=== PATIENT | male | born 1945 | race African-American/Black ===

== ENCOUNTER 2018-06-28 17:50 | Inpatient (IN) ==
[2018-06-28] MEDS ORDERED: CEFEPIME 2,000 MG in SODIUM CHLORIDE 0.9% 100 ML IV STA (18:20)
[2018-06-28] MEDS ORDERED: VANCOMYCIN INJ 1,000 MG in SODIUM CHLORIDE 0.9% 250 ML IV STA (18:21)
[2018-06-28 18:39] LABS: Basophils % 0.7 % (0.0-0.8); Eosinophils # 0.1 10*3/uL (0.0-0.87); Eosinophils % 1.5 % (0.00-10.9); Hematocrit 36.9 VOL% (42.0-52.0); Hemoglobin 11.7 GM/DL (14.0-18.0); Immature Granulocytes % 0.3 %; Immature Granulocytes Absolute 0.02 #; Lymphocytes % 17.3 % (21.2-54.2); Mean Corpuscular HGB Conc 31.7 GM/DL (32-36); Mean Corpuscular Hemoglobin 30 PG (27-34); Mean Corpuscular Volume 95.8 FL (87-102); Mean Platelet Volume 9.3 FL (9.6-12.0); Monocytes # 0.6 10*3/uL (0.11-0.8); Neutrophils # 4.1 10*3/uL (1.4-7.4); Neutrophils % 70.2 % (38.7-73.9); Platelet Count 167 T/CUMM (130-400); Red Blood Count 3.85 MC/CUMM (3.8-5.5); Red Cell Distribution Width 13.8 % (9.3-17.3); White Blood Count 5.9 T/CUMM (4-12)
[2018-06-28] MEDS ORDERED: CEFEPIME 1,000 MG VIAL ONE (18:55)
[2018-06-28 19:10] LABS: Albumin 3.2 G/DL (3.4-5.0); Bilirubin,Total 0.8 MG/DL (0.2-1.0); Calcium 8.7 MG/DL (8.5-10.1); Osmolality,Calculated 285.1 MOS/KG (273-304); Potassium 4.2 MMOL/L (3.5-5.1); Total Protein 8.1 G/DL (6.4-8.3)
[2018-06-28] MEDS ORDERED: diphenhydrAMINE 50 MG/1 ML VIAL IV STA (19:12)
[2018-06-28 19:25] LABS: Lactic Acid 1.1 MMOL/L (0.4-2.0)
[2018-06-28] MEDS ORDERED: GLUCAGON 1 MG VIAL IM PRN (19:46)
[2018-06-28] MEDS ORDERED: DEXTROSE 50% 25 GM/50 ML VIAL IV PRN (19:46)
[2018-06-28] MEDS ORDERED: ACETAMINOPHEN 325 MG TABLET PO PRN (19:46)
[2018-06-28] MEDS ORDERED: BISACODYL 5 MG TABLET PO PRN (19:46)
[2018-06-28] MEDS ORDERED: DOCUSATE SODIUM 100 MG CAPSULE PO PRN (19:46)
[2018-06-28] MEDS ORDERED: ONDANSETRON 4 MG/2 ML VIAL IV PRN (19:46)
[2018-06-28] MEDS ORDERED: traMADol 50 MG TABLET PO PRN (19:51)
[2018-06-28 20:34] LABS: Apearance,Urine CLEAR (Clear); Bacteria,Urine Occasional /HPF (Few); Bilirubin,Urine Negative (Negative); Blood, Urine Small mg/dL (Negative); Glucose,Urine (UA) 150 mg/dL (Negative); Ketones,Urine Negative (Negative); Mucus,Urine Occasional /LPF (Occasional); Nitrite,Urine Negative (Negative); Protein,Urine 30 MG/DL; RBC,Urine <1 /HPF (0-4); Squamous Epithelial Cell,Urine Occasional /HPF (0-10); Urine Color Straw (Yellow); Urine Specific Gravity 1.008 (1.001-1.035); WBC,Urine <1 /HPF (0-6)
[2018-06-28 21:11] LABS: Sedimentation Rate-Westergren 99 MM/HR (0-20)
[2018-06-28] MEDS: SODIUM CHLORIDE 0.9% 1,000 ML IV SCH (22:17)
[2018-06-28] MEDS: ATORVASTATIN 80 MG TABLET PO SCH (22:22)
[2018-06-28] MEDS: ENOXAPARIN 40 MG/0.4 ML SYRINGE SUBCUT SCH (22:22)
[2018-06-28] MEDS: GABAPENTIN 100 MG CAPSULE PO SCH (22:22)
[2018-06-28] MEDS: AMITRIPTYLINE 10 MG TABLET PO SCH (22:22)
[2018-06-28] MEDS: CITALOPRAM 20 MG TABLET PO SCH (22:22)
[2018-06-28] MEDS: PIPERACILLIN/TAZOBACTAM 3,375 MG in SODIUM CHLORIDE 0.9% 100 ML IV SCH (22:23)
[2018-06-28] MEDS: INSULIN LISPRO 100 UNIT/ML SUBCUT SCH (23:57)
[2018-06-29] MEDS: PIPERACILLIN/TAZOBACTAM 3,375 MG in SODIUM CHLORIDE 0.9% 100 ML IV SCH ×3 (05:05→23:25)
[2018-06-29] MEDS: SODIUM CHLORIDE 0.9% 1,000 ML IV SCH ×3 (05:35→21:07)
[2018-06-29] MEDS: INSULIN LISPRO 100 UNIT/ML SUBCUT SCH ×3 (06:14→18:43)
[2018-06-29 06:17] LABS: Basophils % 0.6 % (0.0-0.8); Eosinophils # 0.1 10*3/uL (0.0-0.87); Eosinophils % 2.7 % (0.00-10.9); Hematocrit 31.7 VOL% (42.0-52.0); Hemoglobin 10.4 GM/DL (14.0-18.0); Immature Granulocytes % 0.2 %; Immature Granulocytes Absolute 0.01 #; Lymphocytes # 1.2 10*3/uL (1.4-4.0); Lymphocytes % 25.7 % (21.2-54.2); Mean Corpuscular HGB Conc 32.8 GM/DL (32-36); Mean Corpuscular Hemoglobin 29 PG (27-34); Mean Corpuscular Volume 88.8 FL (87-102); Mean Platelet Volume 9.5 FL (9.6-12.0); Monocytes # 0.5 10*3/uL (0.11-0.8); Monocytes % 9.5 % (1.7-12.7); Neutrophils % 61.3 % (38.7-73.9); Platelet Count 210 T/CUMM (130-400); Red Blood Count 3.57 MC/CUMM (3.8-5.5); White Blood Count 4.8 T/CUMM (4-12)
[2018-06-29 06:39] LABS: Albumin 2.5 G/DL (3.4-5.0); Bilirubin,Total 0.8 MG/DL (0.2-1.0); Calcium 8.1 MG/DL (8.5-10.1); Osmolality,Calculated 290.7 MOS/KG (273-304); Potassium 3.4 MMOL/L (3.5-5.1); Total Protein 6.7 G/DL (6.4-8.3)
[2018-06-29] MEDS: LISINOPRIL 20 MG TABLET PO SCH (07:00)
[2018-06-29] MEDS: METOPROLOL SUCCINATE XL 50 MG TABLET PO SCH (07:00)
[2018-06-29] MEDS ORDERED: MAGNESIUM SULF RIDER 2 GM in PREMIX 1 EACH IV ONE (07:13)
[2018-06-29] MEDS ORDERED: POTASSIUM CHLORIDE 20 MEQ TABLET PO ONE ×2 (07:14→12:00)
[2018-06-29] MEDS ORDERED: BUPIVACAINE 0.5% 50 ML VIAL ONE (07:49)
[2018-06-29] MEDS ORDERED: LIDOCAINE 1% 20 ML VIAL ONE (07:50)
[2018-06-29] MEDS ORDERED: PROPOFOL 200 MG/20 ML VIAL IV ONE (08:51)
[2018-06-29] MEDS ORDERED: KETAMINE 500 MG/10 ML VIAL ONE (08:51)
[2018-06-29] MEDS ORDERED: SODIUM CHLORIDE 0.9% 250 ML IV ONE (08:51)
[2018-06-29] MEDS: INSULIN GLARGINE 100 UNIT/ML SUBCUT SCH (09:00)
[2018-06-29] MEDS: PANTOPRAZOLE 40 MG TABLET PO SCH (11:16)
[2018-06-29] MEDS: GABAPENTIN 100 MG CAPSULE PO SCH ×2 (11:16→21:06)
[2018-06-29] MEDS: VANCOMYCIN INJ 1,250 MG in SODIUM CHLORIDE 0.9% 250 ML IV SCH ×2 (11:16→21:07)
[2018-06-29] MEDS: ENOXAPARIN 40 MG/0.4 ML SYRINGE SUBCUT SCH (21:06)
[2018-06-29] MEDS: CITALOPRAM 20 MG TABLET PO SCH (21:06)
[2018-06-29] MEDS: ATORVASTATIN 80 MG TABLET PO SCH (21:06)
[2018-06-29] MEDS: AMITRIPTYLINE 10 MG TABLET PO SCH (21:06)
[2018-06-30] MEDS: INSULIN LISPRO 100 UNIT/ML SUBCUT SCH ×4 (03:33→17:04)
[2018-06-30] MEDS: SODIUM CHLORIDE 0.9% 1,000 ML IV SCH ×3 (06:10→22:16)
[2018-06-30] MEDS: PIPERACILLIN/TAZOBACTAM 3,375 MG in SODIUM CHLORIDE 0.9% 100 ML IV SCH ×3 (06:10→22:16)
[2018-06-30] MEDS: LISINOPRIL 20 MG TABLET PO SCH (06:37)
[2018-06-30] MEDS: METOPROLOL SUCCINATE XL 50 MG TABLET PO SCH (06:38)
[2018-06-30 08:32] LABS: Calcium 8.4 MG/DL (8.5-10.1); Osmolality,Calculated 278.7 MOS/KG (273-304); Potassium 4.2 MMOL/L (3.5-5.1)
[2018-06-30] MEDS: INSULIN GLARGINE 100 UNIT/ML SUBCUT SCH (08:35)
[2018-06-30] MEDS: PANTOPRAZOLE 40 MG TABLET PO SCH (08:35)
[2018-06-30] MEDS: GABAPENTIN 100 MG CAPSULE PO SCH ×2 (08:35→20:19)
[2018-06-30] MEDS: VANCOMYCIN INJ 1,250 MG in SODIUM CHLORIDE 0.9% 250 ML IV SCH ×2 (08:35→21:13)
[2018-06-30] MEDS: ENOXAPARIN 40 MG/0.4 ML SYRINGE SUBCUT SCH (20:19)
[2018-06-30] MEDS: ATORVASTATIN 80 MG TABLET PO SCH (20:19)
[2018-06-30] MEDS: CITALOPRAM 20 MG TABLET PO SCH (20:19)
[2018-06-30] MEDS: AMITRIPTYLINE 10 MG TABLET PO SCH (20:19)
[2018-07-01] MEDS: INSULIN LISPRO 100 UNIT/ML SUBCUT SCH ×4 (00:38→17:34)
[2018-07-01] MEDS: PIPERACILLIN/TAZOBACTAM 3,375 MG in SODIUM CHLORIDE 0.9% 100 ML IV SCH (04:00)
[2018-07-01 05:32] LABS: Basophils % 0.8 % (0.0-0.8); Eosinophils # 0.2 10*3/uL (0.0-0.87); Eosinophils % 3.6 % (0.00-10.9); Hematocrit 31.1 VOL% (42.0-52.0); Hemoglobin 10.2 GM/DL (14.0-18.0); Immature Granulocytes % 0.2 %; Immature Granulocytes Absolute 0.01 #; Lymphocytes # 1.3 10*3/uL (1.4-4.0); Lymphocytes % 27.2 % (21.2-54.2); Mean Corpuscular HGB Conc 32.8 GM/DL (32-36); Mean Corpuscular Hemoglobin 29 PG (27-34); Mean Corpuscular Volume 89.6 FL (87-102); Mean Platelet Volume 9.6 FL (9.6-12.0); Monocytes # 0.4 10*3/uL (0.11-0.8); Monocytes % 9.3 % (1.7-12.7); Neutrophils # 2.8 10*3/uL (1.4-7.4); Neutrophils % 58.9 % (38.7-73.9); Platelet Count 200 T/CUMM (130-400); Red Blood Count 3.47 MC/CUMM (3.8-5.5); White Blood Count 4.7 T/CUMM (4-12)
[2018-07-01 05:50] LABS: Calcium 8.2 MG/DL (8.5-10.1); Osmolality,Calculated 282.3 MOS/KG (273-304)
[2018-07-01] MEDS: LISINOPRIL 20 MG TABLET PO SCH (06:14)
[2018-07-01] MEDS: METOPROLOL SUCCINATE XL 50 MG TABLET PO SCH (06:15)
[2018-07-01] MEDS: SODIUM CHLORIDE 0.9% 1,000 ML IV SCH ×3 (06:15→22:28)
[2018-07-01] MEDS: GABAPENTIN 100 MG CAPSULE PO SCH ×2 (09:06→21:30)
[2018-07-01] MEDS: PANTOPRAZOLE 40 MG TABLET PO SCH (09:06)
[2018-07-01] MEDS: INSULIN GLARGINE 100 UNIT/ML SUBCUT SCH (09:06)
[2018-07-01] MEDS ORDERED: VANCOMYCIN INJ 1,250 MG in SODIUM CHLORIDE 0.9% 250 ML IV SCH (21:00)
[2018-07-01] MEDS: ENOXAPARIN 40 MG/0.4 ML SYRINGE SUBCUT SCH (21:30)
[2018-07-01] MEDS: ATORVASTATIN 80 MG TABLET PO SCH (21:30)
[2018-07-01] MEDS: AMITRIPTYLINE 10 MG TABLET PO SCH (21:30)
[2018-07-01] MEDS: CITALOPRAM 20 MG TABLET PO SCH (21:30)
[2018-07-02] MEDS: INSULIN LISPRO 100 UNIT/ML SUBCUT SCH ×4 (00:58→19:25)
[2018-07-02] MEDS: LISINOPRIL 20 MG TABLET PO SCH (06:11)
[2018-07-02] MEDS: METOPROLOL SUCCINATE XL 50 MG TABLET PO SCH (06:11)
[2018-07-02] MEDS: SODIUM CHLORIDE 0.9% 1,000 ML IV SCH ×2 (06:14→12:09)
[2018-07-02 06:46] LABS: Risk Ratio 1.79; Thyroid Stimulating Hormone 2.73 uIU/ml (0.358-3.74); VLDL CHOLESTEROL 16.6 MG/DL
[2018-07-02] MEDS: INSULIN GLARGINE 100 UNIT/ML SUBCUT SCH (09:54)
[2018-07-02] MEDS: PANTOPRAZOLE 40 MG TABLET PO SCH (09:54)
[2018-07-02] MEDS: GABAPENTIN 100 MG CAPSULE PO SCH (09:54)
[2018-07-02 19:21] VITALS: BP 170/83
== END 2018-07-02 14:30 | DRG 264 ==
LOC: EDUNIT# → N.ED 17:50 → N.EDINP 19:46 → N.3E 20:22
PROVIDERS: ADMIT Internal Medicine; ATTEND Internal Medicine